=== PATIENT | female | born 1985 | race Caucasian/White ===

== ENCOUNTER → 2016-12-28 | Outpatient (CLI) | payer OTHER ==
[~2016-12-28] MED LIST: PRENTAB26 PO
[2016-12-28 12:17] LABS: BASO % 0.1 %; BASO ABS # 0.01 K/uL (0-0.2); COMPLETE YES; EOS % 1.8 %; HEMATOCRIT 39.6 % (37-47); IG% 0.1 %; LYMPH % 24.8 %; LYMPH ABS # 1.77 K/uL (1.2-3.4); MEAN CELL VOLUME 92.5 fL (80-100); MEAN CORPUSCULAR HEMOGLOBIN 31.1 pg (25-34); MEAN CORPUSCULAR HGB CONC 33.6 g/dl (32-36); MEAN PLATELET VOLUME 10.6 fL (7.4-10.4); MONO % 5.6 %; NEUT % 67.6 %; PLATELET COUNT 217 K/uL (130-400); RED BLOOD COUNT 4.28 M/uL (4.2-5.4); WHITE BLOOD COUNT 7.14 K/uL (4.8-10.8)
[2016-12-28 12:31] LABS: CHOLESTEROL/HDL RATIO 3.9
== END | disposition home or self-care (01) ==
LOC: C.LAB1850 10:37
PROVIDERS: ATTEND Family Medicine
DX: E78.1 Pure hyperglyceridemia (principal); Z13.1 Encounter for screening for diabetes mellitus; Z13.0 Encounter for screening for diseases of the blood and blood-forming organs and certain disorders involving the immune mechanism

== ENCOUNTER → 2017-03-13 | Outpatient (CLI) | payer OTHER ==
--- NOTE | 2017-03-13 13:03 | DIAGNOSTIC IMAGING REPORT ---
CHEST 2 VIEWS ROUTINE CLINICAL HISTORY: COUGH COMPARISON STUDY: No previous studies for comparison. FINDINGS: The cardiac and mediastinal contours are normal. There is no evidence of focal pulmonary consolidation. There is no evidence of failure. No pleural effusions are visualized.[ IMPRESSION: No active disease in the chest. Electronically signed by: Leonard Knight M.D. 03/13/2017 1:02 PM Dictated Date/Time: 03/13/2017 1:02 PM
== END | disposition home or self-care (01) ==
LOC: C.RADBC 12:51
PROVIDERS: ATTEND Physician Assistant Medical
DX: R05 Cough (principal)